=== PATIENT | male | born 1990 | race Caucasian/White ===

== ENCOUNTER 2021-02-10 08:53 | Outpatient (CLI) | payer OTHER | END 2021-02-10 09:11 | disposition home or self-care (01) | LOC: RAD 08:53 → SONOGRAMA 08:53 | PROVIDERS: ATTEND Internal Medicine Cardiovascular Disease | DX: R10.84 Generalized abdominal pain (principal); J44.9 Chronic obstructive pulmonary disease, unspecified; E03.8 Other specified hypothyroidism ==

== ENCOUNTER 2021-02-21 07:56 | Outpatient (CLI) | payer OTHER | END 2021-02-21 09:58 | disposition home or self-care (01) | LOC: SONOGRAMA 07:56 | PROVIDERS: ATTEND Internal Medicine Cardiovascular Disease | DX: R10.84 Generalized abdominal pain (principal); E03.8 Other specified hypothyroidism ==